=== PATIENT | female | born 1955 | race Caucasian/White ===

== ENCOUNTER → 2018-03-10 | Outpatient (CLI) | END | disposition home or self-care (01) ==

== ENCOUNTER → 2018-03-29 | Outpatient (CLI) | payer OTHER ==
[~2018-03-29] MED LIST: BACTDS PO; CEPH-443 PO; HYDR-3498 PO
== END | disposition home or self-care (01) ==
LOC: C/S 13:57
PROVIDERS: ATTEND Internal Medicine Interventional Cardiology
DX: R94.39 Abnormal result of other cardiovascular function study (principal); R06.02 Shortness of breath

== ENCOUNTER → 2018-03-31 | Outpatient (CLI) | payer OTHER ==
[~2018-03-31] MED LIST changes: +IOHEXOL 100 ML ONE; +METOPROLOL 5 MG INJ ONE; +NITROGLYCERIN AEROSOL (4.9 GM) ONE; +SOD CHLORIDE 0.9% 100 ML ONE
== END | disposition home or self-care (01) ==
LOC: C/S 10:34
PROVIDERS: ATTEND Internal Medicine Interventional Cardiology
DX: R06.02 Shortness of breath (principal); R94.39 Abnormal result of other cardiovascular function study
CPT/HCPCS: 75571; 75574; Q9967; Z7610